=== PATIENT | male | born 1940 | race African-American/Black ===

== ENCOUNTER 2018-01-31 12:14 | Observation (INO) | payer MEDICARE ==
[~2018-01-31] VITALS: Ht 180.3 cm; Wt 65.3 kg
[2018-01-31] MEDS ORDERED: ACETAMINOPHEN 325MG TABLET PO STA (14:17)
[2018-01-31] MEDS ORDERED: SODIUM CHLORIDE 0.9% 1000ML BAG (SEPSIS BOLUS) IV ONE (14:30)
[2018-01-31 14:46] LABS: HEMATOCRIT. 36.2 % (42.0-52.0); HEMOGLOBIN. 12.6 g/dL (14.0-18.0); MEAN CORPUSCULAR HEMOGLOBIN 27.9 pg (28.0-32.0); MEAN CORPUSCULAR VOLUME 80.3 fL (80.0-94.0); MEAN PLATELET VOLUME 7.8 fl (7.4-10.4); PLATELET 177 x1000/uL (130-400); RED CELL DISTRIBUTION WIDTH 14.4 % (11.6-14.6)
[2018-01-31 14:54] LABS: INR 1.1; PROTHROMBIN TIME 11.4 sec (9.4-11.6)
[2018-01-31 14:55] LABS: CHLORIDE 105 mEq/L (98-107)
[2018-01-31 15:06] LABS: PLATELET ESTIMATE NORMAL
[2018-01-31] MEDS ORDERED: PIPERACILLIN/TAZ 3.375G PREMIX 50 ML IV ONE (15:15)
[2018-01-31] MEDS ORDERED: VANCOMYCIN 1 G PREMIX 200 ML IV ONE (15:15)
[2018-01-31 15:29] LABS: CLARITY URINE CLEAR (CLEAR); COLOR URINE YELLOW (YELLOW); KETONES URINE NEGATIVE (NEGATIVE); LEUKOCYTE ESTERASE URINE 3+ (NEGATIVE); NITRITE URINE POSITIVE (NEGATIVE); OCCULT BLOOD URINE TRACE (NEGATIVE); PH URINE 6.5 (4.5-8.0); PROTEIN URINE NEGATIVE (NEGATIVE); SPECIFIC GRAVITY URINE 1.011 (1.005-1.030); UROBILINOGEN URINE 0.2 E.U./dL (0.2-1.0)
[2018-01-31] MEDS ORDERED: CLONIDINE 0.1MG TABLET PO PRN (16:30)
[2018-01-31] MEDS ORDERED: NA PHOS,M-B/NA PHOS,DI-BA ENEMA 118ML PR PRN (16:30)
[2018-01-31] MEDS ORDERED: MAGNESIUM/ALUMINUM HYDROXIDE/SIMETHICONE 30ML UDC PO PRN (16:30)
[2018-01-31] MEDS ORDERED: IPRATROPIUM/ALBUTEROL 0.5-3(2.5)MG/3ML NEB INH PRN (16:30)
[2018-01-31] MEDS ORDERED: ACETAMINOPHEN 650MG SUPP PR PRN (16:30)
[2018-01-31] MEDS ORDERED: DOCUSATE SODIUM 100MG CAPSULE PO PRN (16:30)
[2018-01-31] MEDS ORDERED: DIPHENHYDRAMINE 50MG/ML VIAL IV PRN (16:30)
[2018-01-31] MEDS ORDERED: ACETAMINOPHEN 325MG TABLET PO PRN (16:30)
[2018-01-31] MEDS ORDERED: HYDROCODONE/ACETAMINOPHEN 5/325MG TABLET PO PRN (16:30)
[2018-01-31] MEDS ORDERED: ONDANSETRON HCL 4MG/2ML VIAL IV PRN (16:30)
[2018-01-31] MEDS ORDERED: GUAIFENESIN 200MG/10ML SUGAR FREE UDC PO PRN (16:30)
[2018-01-31] MEDS ORDERED: NICOTINE 14MG PATCH TD NR (17:30)
[2018-01-31] MEDS ORDERED: ENOXAPARIN 40MG/0.4ML SYR SUBCUT SCH (18:00)
[2018-01-31] MEDS: SODIUM CHLORIDE 0.45% 1,000 ML IV SCH (18:18)
[2018-01-31 18:46] VITALS: BP 101/57
[2018-01-31] MEDS ORDERED: PIPERACILLIN/TAZ 3.375G PREMIX 50 ML IV SCH (20:00)
[2018-01-31 20:17] VITALS: BP 97/41
[2018-01-31] MEDS: PIPERACILLIN/TAZ 3.375G PREMIX 50 ML IV SCH (20:48)
[2018-02-01 00:19] VITALS: BP 118/51
[2018-02-01 04:40] VITALS: BP 89/38
[2018-02-01] MEDS: PIPERACILLIN/TAZ 3.375G PREMIX 50 ML IV SCH ×2 (05:02→13:58)
[2018-02-01 07:12] LABS: HEMATOCRIT. 30.2 % (42.0-52.0); HEMOGLOBIN. 10.5 g/dL (14.0-18.0); MEAN CORPUSCULAR HEMOGLOBIN 27.8 pg (28.0-32.0); MEAN CORPUSCULAR VOLUME 80.1 fL (80.0-94.0); PLATELET 160 x1000/uL (130-400); RED BLOOD CELL COUNT 3.77 mill/uL (4.7-6.1); RED CELL DISTRIBUTION WIDTH 14.4 % (11.6-14.6)
[2018-02-01 08:00] VITALS: BP 104/41
[2018-02-01 10:02] LABS: CHLORIDE 105 mEq/L (98-107)
[2018-02-01 10:10] LABS: LDL CHOLESTEROL 71 mg/dL (5-100)
[2018-02-01 10:11] LABS: HDL CHOLESTEROL 45 mg/dL (40-59)
[2018-02-01 10:18] LABS: T4 FREE 1.06 ng/dL (0.76-1.46)
[2018-02-01] MEDS: NICOTINE 14MG PATCH TD SCH (10:32)
[2018-02-01 12:00] VITALS: BP 118/48
[2018-02-01 14:11] LABS: PLATELET ESTIMATE NORMAL
[2018-02-01 16:00] VITALS: BP 103/50
[2018-02-01] MEDS ORDERED: MORPHINE SULFATE 4 MG/ML CPJ (NOT FOR IM USE) IV NR (17:15)
[2018-02-01] MEDS: ENOXAPARIN 30MG/0.3ML SYR SUBCUT SCH (17:52)
[2018-02-01] MEDS: LEVOFLOXACIN 250MG PREMIX 50 ML IV SCH (19:12)
[2018-02-01 20:00] VITALS: BP 110/40
[2018-02-02] VITALS: BP 107/50
[2018-02-02 04:00] VITALS: BP 98/40
[2018-02-02 07:33] LABS: BASOPHILS % 0.3 % (0.0-2.0); EOSINOPHILS % 0.6 % (0.0-5.0); HEMOGLOBIN. 9.6 g/dL (14.0-18.0); MEAN CORPUSCULAR HEMOGLOBIN 28.3 pg (28.0-32.0); MEAN CORPUSCULAR VOLUME 79.5 fL (80.0-94.0); MONOCYTES % 9.2 % (2.0-8.0); NEUTROPHILS % 80.9 % (40.0-76.0); PLATELET 108 x1000/uL (130-400); RED CELL DISTRIBUTION WIDTH 14.4 % (11.6-14.6)
[2018-02-02 08:10] LABS: CHLORIDE 105 mEq/L (98-107)
[2018-02-02] MEDS: NICOTINE 14MG PATCH TD SCH (08:35)
[2018-02-02] MEDS: SODIUM CHLORIDE 0.45% 1,000 ML IV SCH (08:36)
[2018-02-02 12:00] VITALS: BP 91/42
[2018-02-02] MEDS: LEVOFLOXACIN 250MG PREMIX 50 ML IV SCH (15:44)
[2018-02-02 16:00] VITALS: BP 107/49
[2018-02-02] MEDS: ENOXAPARIN 30MG/0.3ML SYR SUBCUT SCH (17:11)
[2018-02-02 17:37] VITALS: BP 107/49
== END 2018-02-02 18:05 | disposition home or self-care (01) ==
LOC: ER 12:14 → 6WST 15:41 → INTOOBSV 15:41 → EDBEDREQ 15:44 → EDBEDREQSVC 15:44 → ENRESERV 15:50 → SUPCPDRO 16:16
PROVIDERS: ADMIT Internal Medicine; ATTEND Internal Medicine
DX: N40.1 Benign prostatic hyperplasia with lower urinary tract symptoms (principal); N39.0 Urinary tract infection, site not specified; D64.9 Anemia, unspecified; I25.10 Atherosclerotic heart disease of native coronary artery without angina pectoris; J44.9 Chronic obstructive pulmonary disease, unspecified; F17.210 Nicotine dependence, cigarettes, uncomplicated; E78.5 Hyperlipidemia, unspecified; E46 Unspecified protein-calorie malnutrition; R00.0 Tachycardia, unspecified; M19.90 Unspecified osteoarthritis, unspecified site; Z95.5 Presence of coronary angioplasty implant and graft
CPT/HCPCS: 36415; 71045; 74176; 76770; 80053; 80061; 81003; 83605; 84439; 84443; 84484; 85025; 85610; 87015; 87040; 87045; 87077; 87086; 87186; 87427; 87449; 87493; 93005; 93970; 96361; 96365; 96366; 96367; 96368; 96372; 96375; 96376; 99291; G0378; J1650; J1956; J2270; J2405; J2543; J3370; J7030; 99285; A4315

== ENCOUNTER 2018-12-13 21:48 | Emergency (ER) | payer MEDICARE ==
[~2018-12-13] VITALS: Ht 180.3 cm; Wt 69.0 kg
[2018-12-14] MEDS ORDERED: KETOROLAC 30MG/ML VIAL IM ONE (01:15)
[2018-12-14 01:30] VITALS: BP 124/73
== END 2018-12-14 02:45 | disposition home or self-care (01) ==
LOC: ER 21:48
DX: M54.12 Radiculopathy, cervical region (principal); F17.200 Nicotine dependence, unspecified, uncomplicated; Z79.899 Other long term (current) drug therapy
CPT/HCPCS: 96372; 99283; J1885